=== PATIENT | female | born 1990 | race Two or more races ===

== ENCOUNTER 2023-11-04 20:04 | Emergency (ER) | payer OTHER ==
[~2023-11-04] VITALS: Ht 170.2 cm; Wt 65.8 kg
[2023-11-04] MEDS ORDERED: ZYRTEC10 M3 (20:27)
[2023-11-04 21:49] LABS: HEMATOCRIT 39.6 % (36.0-45.00); HEMOGLOBIN 13.5 g/dL (12.0-15.00); MEAN CELL VOLUME 77.6 fL (80.00-100.00); MEAN CORPUSCULAR HEMOGLOBIN 26.5 pg (27.00-32.0); MEAN CORPUSCULAR HGB CONC 34.1 g/dl (32.0-36.0); PLATELET COUNT 270 K/uL (150-450); RED CELL DISTRIBUTION WIDTH 13.4 % (11.5-14.5)
[2023-11-04 22:17] LABS: CREATININE SERUM 0.81 mg/dL (0.55-1.02); GFR 81.94; POTASSIUM 3.88 mEq/L (3.5-5.1)
[2023-11-04 22:21] LABS: PH,URINE 7.5 (5.0-8.0); URINE APPEARANCE Clear; URINE BILIRRUBIN Negative (NEGATIVE); URINE BLOOD Large; URINE COLOR Yellow; URINE GLUCOSE Negative (NEGATIVE); URINE LEUKOCYTE Negative; URINE NITRATE Negative; URINE PROTEIN Negative (NEGATIVE); URINE UROBILINOGEN 0.2 E.U./dl
[2023-11-04 22:25] LABS: URINE BACTERIA 85.6 uL (0.0-1933); URINE EPITHELIAL CELLS 10.6 uL (0.0-38.8); URINE RBC 9.9 uL (0.0-20.8); URINE WBC 1.5 uL (0.0-23.2)
[2023-11-04] MEDS ORDERED: DICY20TA PO (23:30)
[2023-11-04] MEDS ORDERED: ZOFRAN8 MG PO (23:30)
[2023-11-04] MEDS ORDERED: PEPCID AC20 MG PO (23:30)
== END 2023-11-04 23:51 | disposition home or self-care (01) ==
LOC: ER 20:04
PROVIDERS: General Practice
DX: K52.89 Other specified noninfective gastroenteritis and colitis (principal)

== ENCOUNTER 2024-04-06 19:03 | Emergency (ER) | payer OTHER ==
[~2024-04-06] VITALS: Ht 170.2 cm; Wt 66.7 kg
[~2024-04-06 19:03] MED LIST: DICY20TA PO; PEPCID AC20 MG PO; ZOFRAN8 MG PO; ZYRTEC10 M3
[2024-04-06] MEDS ORDERED: RINGERS SOLUTION,LACTATED 1,000 ML IV STA (20:59)
[2024-04-06 21:33] LABS: HEMOGLOBIN 14.3 g/dL (12.0-15.00); MEAN CORPUSCULAR HEMOGLOBIN 26.2 pg (27.00-32.0); MEAN CORPUSCULAR HGB CONC 33.2 g/dl (32.0-36.0); PLATELET COUNT 321 K/uL (150-450); RED BLOOD COUNT 5.44 M/uL (4.00-6.00)
[2024-04-06 21:51] LABS: INR 0.97; PARTIAL THROMBOPLASTIN TIME 25.4 SECONDS (22.0-34.0); PROTHROMBIN TIME 10.2 SECONDS (9.0-11.5)
[2024-04-06 22:21] LABS: ALBUMIN 3.9 gm/dL (3.4-5.0); BILIRUBIN TOTAL 0.63 mg/dL (0.3-1.2); CALCIUM 9.4 mg/dL (8.5-10.1); CREATININE SERUM 0.72 mg/dL (0.55-1.02); GFR 93.29; GLOBULINA 4.4 G/DL (2.4-3.5); POTASSIUM 3.59 mEq/L (3.5-5.1); TOTAL PROTEIN 8.3 gm/dL (6.4-8.2)
== END 2024-04-06 22:37 | disposition home or self-care (01) ==
LOC: ER 19:03
DX: O20.8 Other hemorrhage in early pregnancy (principal); Z3A.01 Less than 8 weeks gestation of pregnancy

== ENCOUNTER 2024-04-10 17:04 | Emergency (ER) | payer OTHER ==
[~2024-04-10] VITALS: Ht 170.2 cm; Wt 66.7 kg
[2024-04-10] MEDS ORDERED: 0.9 % SODIUM CHLORIDE 1,000 ML IV STA (17:21)
[2024-04-10 18:26] LABS: HEMATOCRIT 38.5 % (36.0-45.00); MEAN CELL VOLUME 76.8 fL (80.00-100.00); MEAN CORPUSCULAR HGB CONC 33.9 g/dl (32.0-36.0); PLATELET COUNT 269 K/uL (150-450); RED BLOOD COUNT 5.01 M/uL (4.00-6.00); RED CELL DISTRIBUTION WIDTH 13.1 % (11.5-14.5)
[2024-04-10 18:48] LABS: PH,URINE 6.5 (5.0-8.0); URINE APPEARANCE Clear; URINE BILIRRUBIN Negative (NEGATIVE); URINE BLOOD Large; URINE COLOR Yellow; URINE GLUCOSE Negative (NEGATIVE); URINE LEUKOCYTE Negative; URINE NITRATE Negative; URINE PROTEIN Negative (NEGATIVE); URINE UROBILINOGEN 0.2 E.U./dl
[2024-04-10 18:52] LABS: URINE BACTERIA 62.9 uL (0.0-1933); URINE EPITHELIAL CELLS 9.7 uL (0.0-38.8); URINE RBC 13.1 uL (0.0-20.8); URINE WBC 1.8 uL (0.0-23.2)
[2024-04-10 19:09] LABS: CALCIUM 8.8 mg/dL (8.5-10.1); CREATININE SERUM 0.62 mg/dL (0.55-1.02); GFR 110.85; POTASSIUM 4.01 mEq/L (3.5-5.1)
== END 2024-04-10 21:15 | disposition home or self-care (01) ==
LOC: ER 17:04
PROVIDERS: Emergency Medicine
DX: O20.8 Other hemorrhage in early pregnancy (principal); Z3A.01 Less than 8 weeks gestation of pregnancy

== ENCOUNTER 2024-11-08 09:16 | Inpatient (IN) | payer OTHER ==
[~2024-11-08] VITALS: Ht 170.2 cm; Wt 1.8 kg
[2024-11-08 09:12] LABS: HEMATOCRIT 43.3 % (36.0-45.00); HEMOGLOBIN 14.5 g/dL (12.0-15.00); MEAN CELL VOLUME 81.7 fL (80.00-100.00); MEAN CORPUSCULAR HEMOGLOBIN 27.4 pg (27.00-32.0); MEAN CORPUSCULAR HGB CONC 33.5 g/dl (32.0-36.0); PLATELET COUNT 168 K/uL (150-450); RED CELL DISTRIBUTION WIDTH 14.9 % (11.5-14.5)
[~2024-11-08 09:16] MED LIST changes: +CHILDREN'S ASPI81 MG PO; +IRON; +PRENATAL 19 TA1 EAC2 PO
[2024-11-08 09:21] LABS: URINE APPEARANCE Clear; URINE BILIRRUBIN Negative (NEGATIVE); URINE BLOOD Negative; URINE COLOR Yellow; URINE GLUCOSE Negative (NEGATIVE); URINE KETONE Negative (NEGATIVE); URINE LEUKOCYTE Negative; URINE NITRATE Negative; URINE PROTEIN Negative (NEGATIVE); URINE UROBILINOGEN 0.2 E.U./dl
[2024-11-08 09:23] LABS: URINE BACTERIA 134.4 uL (0.0-1933); URINE EPITHELIAL CELLS 6.6 uL (0.0-38.8); URINE RBC 2.2 uL (0.0-20.8); URINE WBC 3.4 uL (0.0-23.2)
[2024-11-08 09:40] LABS: INR 0.95; PARTIAL THROMBOPLASTIN TIME 30.7 SECONDS (22.0-34.0); PROTHROMBIN TIME 10.4 SECONDS (9.0-11.5)
[2024-11-08 09:45] LABS: ALBUMIN 2.8 gm/dL (3.4-5.0); BILIRUBIN TOTAL 0.68 mg/dL (0.3-1.2); CALCIUM 9.2 mg/dL (8.5-10.1); CREATININE SERUM 1.09 mg/dL (0.55-1.02); GFR 57.81; POTASSIUM 4.5 mEq/L (3.5-5.1); TOTAL PROTEIN 6.8 gm/dL (6.4-8.2)
[2024-11-13 20:23] VITALS: BP 115/78
[2024-11-13] MEDS ORDERED: OXYTOCIN 10 UNITS/ML VIAL ONE (21:04)
[2024-11-13] MEDS ORDERED: ERYTHROMYCIN BASE OPHT 1GM EACH TUBE OP ONE (21:05)
[2024-11-13] MEDS ORDERED: RINGERS SOLUTION,LACTATED 1,000 ML IV SCH (21:15)
[2024-11-13] MEDS ORDERED: CEFAZOLIN SODIUM 1,000 MG VIAL IV SCH (21:15)
[2024-11-13] MEDS ORDERED: PROMETHAZINE HCL 25 MG/ML AMPUL IV SCH (23:30)
[2024-11-13] MEDS ORDERED: KETOROLAC TROMETHAMINE 60 MG VIAL IM ONE (23:30)
[2024-11-14] MEDS ORDERED: MEPERIDINE HCL/PF 50 MG/ML VIAL IV SCH
[2024-11-14] MEDS ORDERED: MORPHINE SULFATE 4 MG/ML VIAL IV ONE (00:10)
[2024-11-14 02:00] VITALS: BP 112/63
[2024-11-14 07:22] LABS: HEMOGLOBIN 13.2 g/dL (12.0-15.00); MEAN CELL VOLUME 80.3 fL (80.00-100.00); MEAN CORPUSCULAR HEMOGLOBIN 27.2 pg (27.00-32.0); MEAN CORPUSCULAR HGB CONC 33.9 g/dl (32.0-36.0); RED BLOOD COUNT 4.85 M/uL (4.00-6.00); RED CELL DISTRIBUTION WIDTH 15.3 % (11.5-14.5)
[2024-11-14 07:23] LABS: PLATELET COUNT 125 K/uL (150-450)
[2024-11-14 07:42] VITALS: BP 113/68
[2024-11-14] MEDS ORDERED: OxyCODONE HCL/APAP UD (PERCOCET) PO SCH (08:00)
[2024-11-14] MEDS ORDERED: DOCUSATE CALCIUM 240 MG CAPSULE PO SCH (09:00)
[2024-11-14] MEDS ORDERED: SIMETHICONE 125 MG CAPSULE PO SCH (09:00)
[2024-11-14] MEDS ORDERED: DOCUSATE SODIUM 100MG CAP PO NR (10:00)
[2024-11-14 15:38] VITALS: BP 113/73
[2024-11-14] MEDS ORDERED: DOCUSATE SODIUM 100MG CAP PO SCH (17:00)
[2024-11-14] MEDS ORDERED: IBUprofen 800 MG TABLET PO PRN (19:15)
[2024-11-14 20:00] VITALS: BP 113/77
[2024-11-15] VITALS: BP 105/61
[2024-11-15 08:17] VITALS: BP 120/79
[2024-11-15] MEDS ORDERED: MINERAL OIL 30 ML BLIST.PACK PO STA (13:21)
[2024-11-15] MEDS ORDERED: MAGNESIUM HYDROXIDE 30 ML BLIST.PACK PO STA (13:21)
[2024-11-15 16:05] VITALS: BP 120/87
[2024-11-16] VITALS: BP 113/75
[2024-11-16] MEDS ORDERED: BISACODYL 10 MG/SUPP.RECT SUPP.RECT RECTAL SCH (07:00)
[2024-11-16 08:39] VITALS: BP 110/76
== END 2024-11-16 12:54 | disposition home or self-care (01) | DRG 788 ==
LOC: OB/GYN 11-13 20:46 → LDR 11-13 20:46 → OB/GYN 11-13 23:17 → SURH 11-14 07:00 → OB/GYN 11-16 12:54
PROVIDERS: ADMIT Specialist; ATTEND Specialist
PROC: 4A1HXCZ Monitoring of Products of Conception, Cardiac Rate, External Approach (ICD-10-PCS; 2024-11-13)
PROC: 10D00Z1 Extraction of Products of Conception, Low, Open Approach (ICD-10-PCS; principal; 2024-11-13 21:30)
DX: O36.5931 Maternal care for other known or suspected poor fetal growth, third trimester, fetus 1 (principal); O30.043 Twin pregnancy, dichorionic/diamniotic, third trimester; O34.211 Maternal care for low transverse scar from previous cesarean delivery; Z3A.38 38 weeks gestation of pregnancy; Z37.2 Twins, both liveborn

== ENCOUNTER 2024-11-20 04:25 | Emergency (ER) | payer OTHER ==
[~2024-11-20] VITALS: Ht 170.2 cm; Wt 68.0 kg
[2024-11-20] MEDS ORDERED: KETOROLAC TROMETHAMINE 30 MG VIAL ONE (04:41)
[2024-11-20] MEDS ORDERED: CEFTRIAXONE SODIUM 2,000 MG VIAL ONE (04:41)
[2024-11-20] MEDS ORDERED: CEFTRIAXONE SODIUM 2,000 MG VIAL IV ONE (04:45)
[2024-11-20] MEDS ORDERED: KETOROLAC TROMETHAMINE 30 MG VIAL IV ONE (04:45)
[2024-11-20 05:01] LABS: HEMOGLOBIN 13.2 g/dL (12.0-15.00); MEAN CELL VOLUME 82.6 fL (80.00-100.00); MEAN CORPUSCULAR HEMOGLOBIN 27.3 pg (27.00-32.0); PLATELET COUNT 253 K/uL (150-450); RED BLOOD COUNT 4.84 M/uL (4.00-6.00); RED CELL DISTRIBUTION WIDTH 15.8 % (11.5-14.5)
[2024-11-20] MEDS ORDERED: DICLOFENAC SODI75 MG PO (05:32)
[2024-11-20] MEDS ORDERED: CEPHALEXIN500 MG PO (05:32)
== END 2024-11-20 06:06 | disposition home or self-care (01) ==
LOC: ER 04:27
PROVIDERS: General Practice
DX: N61.0 Mastitis without abscess (principal)